=== PATIENT | male | born 1995 | race Caucasian/White ===

== ENCOUNTER 2016-03-16 06:02 | Emergency (ER) | payer BC, MEDICAID ==
--- NOTE | 2016-03-16 06:21 | Emergency Department Record ---
History of Present Illness - General Chief Complaint: Abdominal Pain Stated Complaint: REALLY BAD STOMACH PAINS Time Seen by Provider: 03/16/16 06:16 Source: Patient Mode of Arrival: Ambulatory Limitations: No limitations - History of Present Illness Initial Comments: 20 yo male presents to ED with a CC of diffuse abdominal cramping this morning after taking an oral chocolate bar for constipation last night. Patient reports that he has not had a bowel movement for several days. Patient denies fevers, chills, nausea, or vomiting symptoms. Patient denies health problems at his baseline. MD Complaint: Abdominal pain Onset/Timin -: Hour(s) Location: Periumbilical Radiation: None Migration to: No migration Severity: Moderate Quality: Cramping Consistency: Constant Improves With: Nothing Worsens With: Nothing Associated Symptoms: Denies other symptoms - Related Data Previous Rx's Medication Instructions Recorded Na Phos,M-B/Na Phos,Di-Ba [Fleet 266 ml RC Q12H PRN #3 enema 03/16/16 Enema] Polyethylene Glycol 3350 [Miralax] 1 packet PO DAILY #30 packet 03/16/16 Allergies Allergy/AdvReac Type Severity Reaction Status Date / Time No Known Drug Allergies Allergy Unverified 03/02/16 09:03 Travel Screening - Travel/Exposure Within Last 30 Days Have you traveled within the last 30 days?: No - Travel/Exposure Within Last Year Have you traveled outside the [place] in the last year?: No - Additonal Travel Details Have you been exposed to anyone with a communicable illness?: No - Travel Symptoms Symptom Screening: None Review of Systems Constitutional: Denies: Chills, Fever, Malaise, Night sweats Eyes: Denies: Eye discharge, Eye pain ENT: Denies: Congestion, Ear pain, Epistaxis Respiratory: Denies: Cough, Dyspnea Cardiovascular: Denies: Chest pain, Dyspnea on exertion Endocrine: Denies: Fatigue, Heat or cold intolerance Gastrointestinal: Reports: Abdominal pain, Constipation. Denies: Nausea, Vomiting Genitourinary: Denies: Incontinence, Retention Musculoskeletal: Denies: Arthralgia, Back pain Skin: Denies: Bruising, Change in color Neurological: Denies: Abnormal gait, Confusion, Headache, Seizure Psychiatric: Denies: Anxiety Hematological/Lymphatic: Denies: Anemia, Blood Clots Past Medical History - SOCIAL HISTORY Smoking Status: Never smoker Alcohol Use: None Drug Use: None - RESPIRATORY Hx Respiratory Disorders: No - CARDIOVASCULAR Hx Cardio Disorders: No - NEURO Hx Neuro Disorders: No - GI Hx GI Disorders: Yes Hx Ulcer: Yes (gastritis and ulcer?) - Hx Genitourinary Disorders: No - ENDOCRINE Hx Endocrine Disorders: No - MUSCULOSKELETAL Hx Musculoskeletal Disorders: No - PSYCH Hx Psych Problems: No - HEMATOLOGY/ONCOLOGY Hx Hematology/Oncology Disorders: No Family Medical History Any Significant Family History?: No Physical Exam - General General Appearance: Alert, Oriented x3, Cooperative, No acute distress Limitations: No limitations - Head Head exam: Atraumatic, Normocephalic, Normal inspection Head exam detail: negative: Abrasion, Contusion, Waddell's sign, General tenderness, Hematoma, Laceration - Eye Eye exam: Normal appearance. negative: Conjunctival injection, Periorbital swelling, Periorbital tenderness, Scleral icterus - ENT Ear exam: negative: Auricular hematoma, Auricular trauma Nasal Exam: negative: Active bleeding, Discharge, Dried blood, Foreign body Mouth exam: negative: Drooling, Laceration, Muffled voice, Tongue elevation - Neck Neck exam: Normal inspection. negative: Meningismus, Tenderness - Respiratory Respiratory exam: Normal lung sounds bilaterally. negative: Respiratory distress, Rhonchi, Stridor, Wheezes - Cardiovascular Cardiovascular Exam: Regular rate, Normal rhythm, Normal heart sounds - GI/Abdominal GI/Abdominal exam: Soft, Tenderness (very mild, diffuse TTP on examination, no rebound, no guarding symptoms are present). negative: Rebound, Rigid - Rectal Rectal exam: Deferred - exam: Deferred - Extremities Extremities exam: Normal inspection. negative: Calf tenderness, Pedal edema, Tenderness - Back Back exam: Reports: Normal inspection. Denies: CVA tenderness (R), CVA tenderness (L) - Neurological Neurological exam: Alert, Normal gait, Oriented X3 - Psychiatric Psychiatric exam: Normal affect, Normal mood - Skin Skin exam: Normal color. negative: Abrasion Type of lesion: negative: abrasion Course Vital Signs 03/16/16 06:06 Temperature 97.8 F Pulse Rate 67 Respiratory 20 Rate Blood Pressure 137/105 Pulse Ox 98 - Reevaluation(s) Reevaluation #1: 03/16/16 06:42 Labs reviewed and are grossly unremarkable for an acute process. Patient reassessed and reports that he was able to have a small bowel movement. repeat abdominal examination continues to be benign on exam. Patient appears stable for discharge at this time with return for any worsening of his symptoms. Medical Decision Making - Lab Data Result diagrams: 03/16/16 06:15 03/16/16 06:15 Disposition Disposition: Discharge Clinical Impression: Constipation Qualifiers: Constipation type: unspecified constipation type Qualified Code(s): K59.00 - Constipation, unspecified Disposition: Home, Self-Care Condition: (2) Stable Instructions: Constipation (ED) Additional Instructions: Return to ED if your symptoms worsen or if you have any concerns. Miralax and Fleets enema as directed. Follow-up with your family doctor in 3-5 days as directed. Prescriptions: Na Phos,M-B/Na Phos,Di-Ba [Fleet Enema] 266 ml RC Q12H PRN #3 enema PRN Reason: Constipation Polyethylene Glycol 3350 [Miralax] 1 packet PO DAILY #30 packet Forms: Patient Portal Access Time of Disposition: 06:33
[2016-03-16 06:29] LABS: BASO % 0.5 % (0-6); EOS % 1.3 % (0-6); GRAN % 43.1 % (47-80); HEMATOCRIT 45.7 % (42.0-52.0); HEMOGLOBIN 15.6 gm/dl (14.0-18.0); LYMPH % 46.9 % (16-45); MEAN CELL VOLUME 91.4 fl (81-97); MEAN CORPUSCULAR HEMOGLOBIN 31.2 pg (27-33); MEAN CORPUSCULAR HGB CONC 34.1 g/dl (32-36); MEAN PLATELET VOLUME 9.4 fl (7.4-10.4); MONO % 8.2 % (0-9); PLATELET COUNT 260 K/uL (130-400); WHITE BLOOD COUNT W/O DIFF 5.5 K/uL (4.2-12.2)
[2016-03-16 06:39] LABS: ALB/GLOB RATIO 1.7 (1.1-1.8); ALBUMIN 4.8 gm/dL (3.5-5.0); ALKALINE PHOSPHATASE 76 U/L (38-126); ALT/SGPT 38 U/L (21-72); ANION GAP 17.8 (7-16); AST/SGOT 30 U/L (17-59); BILIRUBIN,TOTAL 0.82 mg/dL (0.2-1.3); BLOOD UREA NITROGEN 14 mg/dL (9-20); CARBON DIOXIDE 25.2 mmol/L (22-30); CREATININE 0.9 mg/dL (0.66-1.25); GLUCOSE,RANDOM 95 mg/dL (70-110); LIPASE 47 U/L (23-300); TOTAL PROTEIN 7.7 gm/dL (6.3-8.2)
== END 2016-03-16 07:07 | disposition home or self-care (01) ==
LOC: ER 06:02
DX: K59.00 Constipation, unspecified (principal); R10.33 Periumbilical pain
CPT/HCPCS: 80053; 83690; 85025; 99283

== ENCOUNTER 2016-12-30 17:39 | Emergency (ER) | payer BC, MEDICAID ==
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
[2016-12-30] MEDS: PROPARACAINE HCL OPTH 15ML BTL OPTH ONE (18:32)
[2016-12-30] MEDS: Diph,Pert(Acell),Tet Vac 0.5 ML SYR IM ONE (19:02)
[2016-12-30] MEDS: GENTAMICIN OPTH OINT 3.5 GM TUBE OPTH ONE (19:03)
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
== END 2016-12-30 20:22 | disposition home or self-care (01) ==
LOC: ER 17:39
DX: T26.61XA Corrosion of cornea and conjunctival sac, right eye, initial encounter (principal); S00.83XA Contusion of other part of head, initial encounter; Y08.89XA Assault by other specified means, initial encounter; Y04.0XXA Assault by unarmed brawl or fight, initial encounter; Y92.009 Unspecified place in unspecified non-institutional (private) residence as the place of occurrence of the external cause
CPT/HCPCS: 70450; 70486; 90715; 96372; 99283; 99284